=== PATIENT | male | born 1945 | race Caucasian/White ===

== ENCOUNTER → 2016-09-09 | Outpatient (CLI) | payer OTHER, BC ==
[2016-09-09 07:54] LABS: BASOPHILS # (AUTO) 0.04 10*3/UL; BASOPHILS % (AUTO) 0.7 % (0-1); EOSINOPHILS # (AUTO) 0.29 10*3/UL; HEMATOCRIT 40.8 % (42.0-52.0); HEMOGLOBIN 13.4 g/dL (14.0-18.0); LYMPHOCYTES # (AUTO) 2.27 10*3/uL; MEAN CORPUSCULAR HEMOGLOBIN 27.3 PG (27-31); MEAN CORPUSCULAR HGB CONC 32.8 g/dL (33-37); MEAN CORPUSCULAR VOLUME 83.1 FL (80-90); MEAN PLATELET VOLUME 9.7 FL (7.4-12.2); MONOCYTES # (AUTO) 0.53 10*3/UL (0.3-0.8); MONOCYTES % (AUTO) 9.1 % (5-15); NEUTROPHILS # (AUTO) 2.67 10*3/UL; NEUTROPHILS % (AUTO) 45.9 % (50-80); RED BLOOD COUNT 4.91 10^6/uL (4.70-6.10)
[2016-09-09 08:00] LABS: PLATELET MORPHOLOGY COMMENT NORMAL MORPHOLOGY (NORM); RBC MORPHOLOGY COMMENT NORMAL MORPHOLOGY (NORM); WBC MORPHOLOGY COMMENT NORMAL MORPHOLOGY (NORM)
[2016-09-09 08:01] LABS: CALCIUM 8.8 mg/dL (8.7-10.7); CHOL/HDL RATIO 7.32 RATIO (0-4.0)
[2016-09-09 08:08] LABS: CREATININE, URINE 136.1 MG/DL (15-500); HEMOGLOBIN A1C 7.64 % (4.2-6.0)
== END ==
LOC: LAB 07:33
PROVIDERS: ATTEND Internal Medicine
DX: E11.9 Type 2 diabetes mellitus without complications (principal); E78.5 Hyperlipidemia, unspecified; G47.33 Obstructive sleep apnea (adult) (pediatric); E66.9 Obesity, unspecified; E03.9 Hypothyroidism, unspecified; Z12.5 Encounter for screening for malignant neoplasm of prostate
CPT/HCPCS: 36415; 80053; 80061; 82043; 82550; 83036; 84443; 85025; G0103

== ENCOUNTER → 2016-09-10 | Outpatient (CLI) | payer OTHER, BC | LOC: MMPC 11:11 | PROVIDERS: ATTEND Internal Medicine | DX: J62.8 Pneumoconiosis due to other dust containing silica (principal); J70.1 Chronic and other pulmonary manifestations due to radiation; G47.33 Obstructive sleep apnea (adult) (pediatric); E66.9 Obesity, unspecified; E11.9 Type 2 diabetes mellitus without complications; E78.5 Hyperlipidemia, unspecified; D64.9 Anemia, unspecified | CPT/HCPCS: 99215; G0463 ==

== ENCOUNTER → 2016-11-28 | Outpatient (CLI) | payer OTHER, BC | LOC: MMPC 09:00 | DX: S01.01XA Laceration without foreign body of scalp, initial encounter (principal); S90.851A Superficial foreign body, right foot, initial encounter; W45.8XXA Other foreign body or object entering through skin, initial encounter; Z23 Encounter for immunization; W22.8XXA Striking against or struck by other objects, initial encounter | CPT/HCPCS: 12002 ×2; 90715; G0463 ==

== ENCOUNTER → 2016-12-08 | Outpatient (CLI) | payer OTHER, BC ==
[2016-12-08 09:10] LABS: BASOPHILS # (AUTO) 0.07 10*3/UL; BASOPHILS % (AUTO) 1.1 % (0-1); EOSINOPHILS # (AUTO) 0.27 10*3/UL; EOSINOPHILS % (AUTO) 4.2 % (0-8); HEMATOCRIT 43.4 % (42.0-52.0); HEMOGLOBIN 14.3 g/dL (14.0-18.0); LYMPHOCYTES # (AUTO) 2.18 10*3/uL; MEAN CORPUSCULAR HEMOGLOBIN 27.1 PG (27-31); MEAN CORPUSCULAR HGB CONC 32.9 g/dL (33-37); MEAN CORPUSCULAR VOLUME 82.4 FL (80-90); MEAN PLATELET VOLUME 10.2 FL (7.4-12.2); MONOCYTES # (AUTO) 0.62 10*3/UL (0.3-0.8); MONOCYTES % (AUTO) 9.7 % (5-15); NEUTROPHILS # (AUTO) 3.26 10*3/UL; NEUTROPHILS % (AUTO) 50.8 % (50-80); RED BLOOD COUNT 5.27 10^6/uL (4.70-6.10)
[2016-12-08 09:23] LABS: CALCIUM 9.2 mg/dL (8.7-10.7); CHOL/HDL RATIO 7.48 RATIO (0-4.0); SERUM ALBUMIN 4.2 g/dL (3.5-4.8)
[2016-12-08 09:45] LABS: PLATELET MORPHOLOGY COMMENT NORMAL MORPHOLOGY (NORM); RBC MORPHOLOGY COMMENT NORMAL MORPHOLOGY (NORM); WBC MORPHOLOGY COMMENT NORMAL MORPHOLOGY (NORM)
[2016-12-08 10:00] LABS: CREATININE, URINE 137.2 MG/DL (15-500); HEMOGLOBIN A1C 6.81 % (4.2-6.0)
[2016-12-10 14:43] LABS: A/G RATIO 1.02 (()); ALB PEP SER 3.6 g/dL (3.4-4.7); ALP1 GLOB 0.2 g/dL (0.1-0.3); ALP2 GLOB 0.9 g/dL (0.6-1.0); GAMMA GLOBS 1.2 g/dL (0.6-1.6)
== END ==
LOC: LAB 08:17
PROVIDERS: ATTEND Internal Medicine
DX: E11.9 Type 2 diabetes mellitus without complications (principal); E78.5 Hyperlipidemia, unspecified; D64.9 Anemia, unspecified; I10 Essential (primary) hypertension; Z48.02 Encounter for removal of sutures
CPT/HCPCS: 36415; 80053; 80061; 82043; 82550; 82607; 82728; 83010; 83036; 83540; 83550; 83921; 84155; 84165; 85025; 85045